=== PATIENT | male | born 1980 | race Caucasian/White ===

== ENCOUNTER 2025-02-10 06:39 | Emergency (ER) | payer OTHER, SELFPAY ==
[2025-02-10 06:43] VITALS: BP 170/94
[2025-02-10 07:04] LABS: Urine Character Clear (Clear)
[2025-02-10 07:47] VITALS: BMI 35.2
[2025-02-10 08:06] LABS: Hematocrit 43.9 % (39.0-52.0); Hemoglobin 15.2 g/dL (13.0-18.0); Mean Corp Hgb Conc. 34.6 g/dL (33.0-37.0); Mean Corpuscular Volume 86.6 fL (80.0-94.0); Nucleated Red Blood Cells % 0 % (-); Platelet Count 250 10^3/uL (130-400); Red Cell Dist. Width 13.1 % (11.5-14.5)
--- NOTE | 2025-02-10 08:11 | ED.GENMED ---
History of Present Illness
General
Chief Complaint: Abdominal Pain
Source: patient
Exam Limitations: none
Time Seen by Provider: 02/10/25 07:40
History of Present Illness
History of Present Illness:
44yoM with a history of hypertension presenting for evaluation of abdominal pain. Symptoms began 4 days ago with diarrhea. He took Imodium and this improved. He started to notice a pain throughout his lower abdomen which feels like he got
punched. Pain seems to worse at nighttime and in the mornings and he is having difficulty sleeping due to his symptoms. Pain is also worse with laying flat. He also reports feeling like both of his testicles are swollen. Pain is not getting any
better over the past few days so he decided to come to the ED. He has been taking Tylenol and ibuprofen without much relief. He denies any fevers, vomiting, urinary symptoms. No previous abdominal surgeries.
Past History
Past History
ED Past Medical History: None
ED Past Surgical History: None
Phy Exam
General Physical Exam
General Presentation: well appearing and no apparent distress
General Skin: warm and dry
General Habitus: normal
General Mental: alert
ENT Exam
ENT Exam: normocephalic
Pulmonary Exam
Pulmonary Exam: no respiratory distress
Gastrointestinal Exam
Gastrointestinal Exam: non tender, soft and non distended
Genitourinary Exam Male
Exam Male: no evidence of trauma, no testicular swelling, no testicular tenderness and other (External genitalia normal to inspection without scrotal swelling or erythema. No significant tenderness or palpable hernia. )
Neurological Exam
Neurological Exam: alert
[place] Coma Scale
Eye Opening: Spontaneous
Verbal Response: Oriented
Motor Response: Obeys Commands
GCS Total Score: 15
Skin Exam
Skin Exam: normal color and warm/dry
Psychiatric Exam
Psychiatric Exam: normal mood/affect
Course
Orders/Labs/Results
Orders:
Orders
02/10/25 06:56
Urinalysis Reflex To Culture Urgent
Date Specimen was Collected: 02/10/25
Time Specimen was Collected: 06:53
02/10/25 07:58
CMP [Comprehensive Metabolic Panel] Urgent
Complete Blood Count/With Diff Urgent
Lipase Urgent
02/10/25 08:08
CT Abd/pelvis W Iv Cont Urgent
Comment:
Reason For Exam: lower abdominal pain
US Scrotum Urgent
Comment:
Reason For Exam: bilateral testicular pain
Abnormal Lab Results
02/10/25
07:58
BUN 8 L mg/dl
(9-20)
Glucose 114 H mg/dl
(70-99)
Total Protein 8.4 H g/dl
(6.3-8.2)
02/10/25 07:58
02/10/25 07:58
Vital Signs
Initial and Last Documented VS:
Initial Vital Signs
Temp Pulse Resp BP Pulse Ox
98.8 F 64 22 170/94 96
02/10/25 06:43 02/10/25 06:43 02/10/25 06:43 02/10/25 06:43 02/10/25 06:43
Last Documented Vital Signs
Temp Pulse Resp BP Pulse Ox
98.8 F 64 22 128/88 97
02/10/25 06:43 02/10/25 06:43 02/10/25 06:43 02/10/25 10:00 02/10/25 10:00
MDM/Problems Addressed
Differential Diagnosis Includes:
44yoM here with lower abd pain and scrotal discomfort x 4 days. Started with diarrhea but this has resolved. VSS. He is well appearing in no distress. Exam is relatively benign without any reproducible tenderness. Differential diagnosis includes but
is not limited to: diverticulitis, kidney stone, orchitis, musculoskeletal, doubt testicular torsion
Initial ED plan: Check abdominal labs, UA, scrotal ultrasound, and CT abdomen. He declines analgesics.
*Pulse Oximetry
SaO2: 96
Patient hypoxic: no (96%)
*Critical Care Note
Total Time (30-74mins, 75-104mins- exclusive of procedures): Not Applicable
Update Note
Update Note:
Labs unremarkable including normal white count, renal function, LFTs, and lipase. UA bland. CT abdomen and scrotal ultrasound are negative for acute findings. Unclear etiology of symptoms. Patient requesting medication for pain as
Tylenol/ibuprofen are not providing adequate relief. Will trial Bentyl. He was advised to follow-up closely with his PCP and ED return precautions reviewed. Patient discharged in stable condition.
ED Attending Note
-
Portions of this chart may have been created with voice recognition software.� Occasional wrong word or��sound alike� substitutions may have occurred due to the inherent limitations of voice recognition software.
Discharge Plan
Departure
Patient Disposition: Home (Routine Discharge)
Date of Disposition: 02/10/25
Time of Disposition: 11:14
Patient with high blood pressure during this ER visit?: No
Discharge Problem:
Nonspecific abdominal pain, Pain in both testicles
Instructions: Abdominal Pain
Prescriptions:
New
dicyclomine 20 mg tablet
20 mg PO QID PRN (Reason: abdominal cramping) Qty: 20 0RF
No Action
cetirizine [Zyrtec] 10 mg Tablet
10 mg PO DAILY PRN (Reason: allergies)
losartan-hydrochlorothiazide
1 tab PO DAILY
Referrals:
Faustino Weiss DO [Family Provider, Internal Medicine]
Activity Restrictions/Additional Instructions:
Take Tylenol and ibuprofen for pain. Apply heat to affected area. You may take Bentyl as needed for abdominal cramping.
Please follow-up with your family doctor next week. Return to the ER with any new or worsening symptoms including severe pain or fevers.
Interventions
Interventions:
*Risk Screen - Suicide Last Done: 02/10/25 06:43
*General Assessment Last Done: 02/10/25 07:42
*Neglect/Abuse Screening Last Done: 02/10/25 07:42
*ED- Fall Risk Assessment Last Done: 02/10/25 07:42
*ED COVID-19 Vaccine History Last Done: 02/10/25 07:42
*Nursing Disposition Last Done: 02/10/25 11:35
EE-Bjoelc-Dxvncmwirl Assessment Last Done: 02/10/25 08:00
Discharge Date and Time
Discharge Date/Time: 02/10/25 11:36
Print Language: VINCENTIAN
[2025-02-10 08:24] LABS: ALT (SGPT) 48 U/L (0-50); AST (SGOT) 25 U/L (17-59); Albumin 4.9 g/dl (3.5-5.0); Alkaline Phosphatase 67 U/L (38-126); Blood Urea Nitrogen 8 mg/dl (9-20); Calcium 9.6 mg/dl (8.4-10.2); Carbon Dioxide 30 mmol/L (22-30); Chloride 100 mmol/L (98-107); Estimated Creatinine Clearance > 125 ml/min; Glucose 114 mg/dl (70-99); Lipase 125 U/L (23-300); Potassium 3.8 mmol/L (3.5-5.1); Sodium 137 mmol/L (135-145); Total Protein 8.4 g/dl (6.3-8.2); eGFR > 60.00
[2025-02-10 09:44] VITALS: BP 143/81
[2025-02-10 10:00] VITALS: BP 128/88
== END 2025-02-10 11:36 | disposition home or self-care (01) ==
LOC: EMR 06:39
PROVIDERS: Emergency Medicine; Physician Assistant; EMERGENCY PHYSICIAN Student in an Organized Health Care Education/Training Program; FAMILY PHYSICIAN Internal Medicine
DX: R10.30 Lower abdominal pain, unspecified (principal); N50.82 Scrotal pain; R19.7 Diarrhea, unspecified; N50.812 Left testicular pain; N50.811 Right testicular pain; G47.9 Sleep disorder, unspecified; I10 Essential (primary) hypertension; Z88.0 Allergy status to penicillin; Z88.2 Allergy status to sulfonamides
CPT/HCPCS: 99284; 74177; 76870; 80053; 81003; 83690; 85025; 93976; Q9967

== ENCOUNTER 2025-05-02 06:18 | Day surgery (SDC) | payer OTHER, SELFPAY | END 2025-05-02 08:29 | disposition home or self-care (01) | LOC: GI 06:18 | PROVIDERS: ATTENDING PHYSICIAN Internal Medicine Gastroenterology | DX: Z12.11 Encounter for screening for malignant neoplasm of colon (principal); K64.8 Other hemorrhoids; K57.30 Diverticulosis of large intestine without perforation or abscess without bleeding | CPT/HCPCS: G0121 ==

== ENCOUNTER 2025-05-23 07:13 | Outpatient (RCR) | payer OTHER, SELFPAY | END 2025-05-23 23:59 | disposition home or self-care (01) | LOC: RPT 07:13 | PROVIDERS: ATTENDING PHYSICIAN Internal Medicine | DX: M76.61 Achilles tendinitis, right leg (principal); S83.92XD Sprain of unspecified site of left knee, subsequent encounter; Z73.6 Limitation of activities due to disability; W19.XXXD Unspecified fall, subsequent encounter | CPT/HCPCS: 97110; 97140; 97162 ==

== ENCOUNTER 2025-06-20 07:18 | Outpatient (RCR) | payer OTHER, SELFPAY | END 2025-06-20 23:59 | disposition home or self-care (01) | LOC: RPT 07:18 | PROVIDERS: ATTENDING PHYSICIAN Internal Medicine | DX: M76.61 Achilles tendinitis, right leg (principal); S83.92XD Sprain of unspecified site of left knee, subsequent encounter; Z73.6 Limitation of activities due to disability; W19.XXXD Unspecified fall, subsequent encounter | CPT/HCPCS: 97110; 97112; 97530 ==

== ENCOUNTER 2025-07-03 15:04 | Outpatient (RCR) | payer OTHER, SELFPAY | END 2025-07-03 23:59 | disposition home or self-care (01) | LOC: RPT 15:04 | PROVIDERS: ATTENDING PHYSICIAN Internal Medicine | DX: M76.61 Achilles tendinitis, right leg (principal); S83.92XD Sprain of unspecified site of left knee, subsequent encounter; Z73.6 Limitation of activities due to disability; W19.XXXD Unspecified fall, subsequent encounter | CPT/HCPCS: 97110; 97112; 97530 ==